=== PATIENT | male | born 1955 | race Caucasian/White ===

== ENCOUNTER 2020-08-11 20:24 | Emergency (ER) | payer MEDICARE, BC, SELFPAY ==
[2020-08-11 20:37] VITALS: BP 139/81; PULSE 97; RESP 14; TEMP 36.9; O2SAT 94; BMI 37.5
[2020-08-11 20:40] VITALS: BMI 37.5
--- NOTE | 2020-08-11 20:40 | XR_ITS ---
PROCEDURE: XR CHEST 2V CLINICAL HISTORY: WEAKNESS, nonsmoker COMPARISON: No exams were available for comparison FINDINGS: The cardiomediastinal silhouette and pulmonary vascularity are within normal limits. 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 There is no pulmonary congestion. There are subtle ill-defined hazy opacities the right perihilar region and in the right lower lobe and questionably involve involving the right upper lobe. The left lung is well expanded and clear. There is no pleural fluid. IMPRESSION: Subtle diffuse ill-defined opacities right upper and right lower lobe and early diffuse pneumonia cannot be excluded Dictated by: Dr. Bladimir Mccauley MD 08/12/2020 08:05 Dr. Bladimir Mccauley MD in [place] 08/12/2020 08:05
--- NOTE | 2020-08-11 20:54 | ECG_ITS ---
APPROVED REPORT Exam: Resting ECG HR:96 bpm ECG Measurements Heart Rate 96 AXES TX 150 P 63 QRSd 102 QRS 80 QT 384 T 15 QTc 485 Conclusion Normal sinus rhythm Nonspecific ST abnormality Prolonged QT Abnormal ECG Electronically signed by : Isiah Grimes, 08/12/2020 07:38:51
[2020-08-11 21:12] LABS: Microscopic, Urine URINE MICROSCOPIC (MICROSCOPIC)
[2020-08-11 21:13] LABS: Basophils % 0.3 % (0.1-2.0); Eosinophils % 0.1 % (0.1-12.0); Hematocrit 44.8 % (42.0-52.0); Hemoglobin 15.4 g/dL (14.1-18.0); Lymphocytes % 9.9 % (10-50); Mean Corpuscular HGB Conc 34.3 g/dL (31.8-35.4); Mean Corpuscular Hemoglobin 28.7 pg (27.0-31.2); Mean Corpuscular Volume 83.6 fl (80-94); Mean Platelet Volume 8.1 fl (7.4-10.4); Monocytes # 0.6 K/mm3 (0.1-1.0); Monocytes % 5.4 % (1.7-9.3); Neutrophils # 8.9 K/mm3 (1.8-7.8); Neutrophils % 84.3 % (37.0-80.0); Platelet Count 311 K/mm3 (142-424); Red Blood Count 5.35 M/mm3 (4.60-6.20); Red Cell Distribution Width 14.5 % (11.5-17.5); White Blood Count 10.5 K/mm3 (4.8-10.8)
--- NOTE | 2020-08-11 21:15 | [facility].EDWEAK ---
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: unspecified long-term insulin use status Diabetes mellitus complication status: with other specified complication Qualified Code(s): E11.69 - Type 2 diabetes mellitus with other specified complication Disposition: Home, Self-Care Condition on Discharge: Good Instructions: DI for Nausea -- Adult Additional Instructions: fluids and call pcp friday am and recheck if needed prior to friday Prescriptions: ondansetron HCL [Zofran 4mg Tab] 4 mg PO Q6H #30 tab Transmission Status: Pending to [facility] #[id number] Referrals: Johan Aguirre [Primary Care Provider] - - Critical Care Critical Care Time: No Attestation: On 08/11/20, the high probability of a clinically significant, sudden or life threatening deterioration of the following system(s) required my full and direct attention, intervention and personal management. The time I documented below is in addition to time spent performing reported procedures but includes the following listed in this critical care notation. Medical Decision Making - Medical Records Medical records reviewed: Yes: I reviewed the patient's medical records. - Bart Inquiry Pt receiving controlled substance: No Vital Signs: 08/11/20 20:37 Temperature 98.5 F Temperature Source Oral Pulse Rate [Right Brachial] 97 H Respiratory Rate 14 Blood Pressure [Right Arm] 139/81 Blood Pressure Mean [Right Arm] 100 02 Sat by Pulse Oximetry 94 L - Lab Data Lab results reviewed: Yes: I reviewed the patient's lab results. Lab Results 08/11/20 21:00: Urine Color Dk yellow, Urine Appearance Clear, Urine pH 6.5, Ur Specific [place] 1.020, Urine Protein 2+, Urine Glucose (UA) Negative, Urine Ketones Trace, Urine Blood Negative, Urine Nitrate Negative, Urine Bilirubin 1+ A, Urine Urobilinogen 2.0, Ur Leukocyte Esterase Negative, Urine WBC 10-20, Ur Squamous Epith Cells 10-20, Urine Mucus 2+ 08/11/20 21:00: WBC 10.5, RBC 5.35, Hgb 15.4, Hct 44.8, MCV 83.6, MCH 28.7, MCHC 34.3, RDW 14.5, Plt Count 311, MPV 8.1, Neut % (Auto) 84.3 H, Lymph % (Auto) 9.9 L, [place] % (Auto) 5.4, Eos % (Auto) 0.1, Baso % (Auto) 0.3, Neut # (Auto) 8.9 H, Lymph # (Auto) 1.0, [place] # (Auto) 0.6, Eos # (Auto) 0.0, Baso # (Auto) 0.0 08/11/20 21:00: Sodium 134 L, Potassium 2.7 L*, Chloride 93 L, Carbon Dioxide 31 H, Anion Gap 12.7, BUN 16, Creatinine 1.00, Estimated Creat Clear 120, Estimated GFR 75, Est GFR ( Amer) 90, Glucose 160 H, Calcium 9.4, Total Bilirubin 1.8 H, AST 81 H, ALT 117 H, Alkaline Phosphatase 168 H, Troponin I 0.02, Total Protein 8.3 H, Albumin 4.3, Globulin 4.0 H, Albumin/Globulin Ratio 1.1 08/11/20 21:00: SARS-CoV-2 IgG Ab (Rapid) Positive A, SARS-CoV-2 IgM Ab (Rapid) Negative Result diagrams: 08/11/20 21:00 08/11/20 21:00 Orders (Tests/Meds): ED MEDICATIONS Generic Name Dose Route Start Last Admin Trade Name Freq PRN Reason Stop Dose Admin Sodium Chloride 1,000 mls @ 999 mls/hr 08/11/20 21:00 08/11/20 20:51 Sod Chlor 0.9% 1000ml Bag IV 08/11/20 22:00 999 mls/hr .Q1H1M DAMASO Administration Discontinued Medications Generic Name Dose Route Start Last Admin Trade Name Freq PRN Reason Stop Dose Admin Ondansetron HCl 4 mg 08/11/20 20:48 08/11/20 20:51 Ondansetron 4mg/2ml Vial IV 08/11/20 20:49 4 mg ONCE ONE Administration Potassium Chloride 40 meq 08/11/20 21:47 08/11/20 21:49 Potassium Chloride 20meq Tab PO 08/11/20 21:48 40 meq ONCE ONE Administration ORDERS Category Date Time Status Chest XR 2 view (NOT portable) [XR chest 2V] Stat Exams 08/11/20 20:40 Taken Hemoglobin A1C Stat Lab 08/11/20 21:00 Received Hepatitis Panel (4) Routine Lab 08/11/20 21:00 Received Troponin I Q3H Lab 08/11/20 23:45 Ordered Troponin I Q3H Lab 08/12/20 02:45 Ordered Urine C
[2020-08-11 21:24] LABS: Alanine Aminotransferase 117 U/L (12-78); Albumin Level 4.3 g/dl (3.5-5.0); Albumin/Globulin Ratio 1.1 (1.1-1.8); Alkaline Phosphatase 168 U/L (38-126); Anion Gap 12.7 mEq/L (5-15); Appearance,Urine CLEAR (Clear); Aspartate Amino Transferase 81 U/L (17-59); Bilirubin,Total 1.8 mg/dl (0.2-1.3); Blood Urea Nitrogen 16 mg/dl (9-20); Blood, Urine Negative (Negative); Calcium 9.4 mg/dl (8.4-10.2); Carbon Dioxide 31 mmol/L (22.0-30.0); Chloride 93 mmol/L (98-107); Color,Urine DK YELLOW (Yellow); Creatinine Clearance Estimated 120 mL/min (50-200); Estimated Glomerular Filt Rate 75 ml/min (>60); GFR (African American) 90 ML/MIN (>60); Glucose 160 mg/dl (74-100); Glucose,Urine (UA) Negative (Negative); Ketones,Urine TRACE (Negative); Leukocyte Esterase,Urine Negative (Negative); Nitrate,Urine Negative (Negative); PH,Urine 6.5 (5.0-8.5); Protein,Urine 2+ (Negative); Sodium 134 mmol/L (136-145); Total Protein,Serum 8.3 g/dl (6.3-8.2)
[2020-08-11 21:29] LABS: Potassium 2.7 mmoL/L (3.5-5.1)
[2020-08-11 21:30] LABS: Bilirubin,Urine 1+ (Negative)
--- NOTE | 2020-08-11 21:30 | PC.NURSE ---
POTASSIUM 2.7. NOTIFIED
[2020-08-11 21:32] LABS: Mucus,Urine 2+ /lpf
[2020-08-11 21:35] LABS: Troponin I 0.02 ng/ml (0.00-0.034)
[2020-08-11 21:37] LABS: Coronavirus 19 IgG Antibody Positive (Negative); Coronavirus 19 IgM Antibody Negative (Negative)
[2020-08-11 22:06] LABS: Hemoglobin A1C 7.2 % (4.0-6.0)
[2020-08-11 22:16] VITALS: BP 127/68; PULSE 98; RESP 14; TEMP 37.1; O2SAT 97
[2020-08-11 22:48] LABS: T4 (Thyroxine) 14.9 ug/dl (5.53-11.0)
[2020-08-11 23:02] LABS: Thyroid Stimulating Hormone 1.48 uIU/mL (0.465-4.68)
[2020-08-14 08:33] LABS: Hep A Ab, IgM Negative (Negative); Hepatitis B Core Antibody IgM Negative (Negative); Hepatitis B Surface Antigen Negative (Negative)
[2020-08-14 09:59] LABS: Hepatitis C Antibody <0.1 s/co ratio (0.0-0.9)
== END 2020-08-11 22:19 | disposition home or self-care (01) ==
PROVIDERS: Emergency Provider Emergency Medicine; PCP Family Medicine
DX: E11.65 Type 2 diabetes mellitus with hyperglycemia (principal); Z01.84 Encounter for antibody response examination; E87.6 Hypokalemia; R74.01 Elevation of levels of liver transaminase levels; Z79.899 Other long term (current) drug therapy
CPT/HCPCS: 71046; 80053; 80074; 81001; 83036; 84436; 84443; 84484; 85025; 86328; 87086; 93005; 96365; 96375; 99283; J2405